=== PATIENT | female | born 1990 | race Caucasian/White ===

== ENCOUNTER 2020-04-20 15:35 | Observation (INO) | payer OTHER ==
[~2020-04-20] VITALS: Ht 167.6 cm; Wt 81.0 kg
[2020-04-20] MEDS ORDERED: TERBUTALINE 1 MG/ML, 1ML SQ ONE (16:00)
[2020-04-20] MEDS ORDERED: LACTATED RINGERS 1,000 ML IV SCH (16:00)
[2020-04-20] MEDS ORDERED: PLEASE ENTER HEIGHT AND WEIGHT MC SCH (16:00)
[2020-04-20 16:09] VITALS: BP 114/74
[2020-04-20] MEDS ORDERED: TERBUTALINE 1 MG/ML, 1ML ONE (16:50)
== END 2020-04-20 18:32 | disposition home or self-care (01) ==
LOC: LDOP 15:35 → LDIP 15:41
PROVIDERS: ADMIT Obstetrics & Gynecology Maternal & Fetal Medicine; ATTEND Obstetrics & Gynecology Maternal & Fetal Medicine
DX: O32.1XX0 Maternal care for breech presentation, not applicable or unspecified (principal); Z3A.37 37 weeks gestation of pregnancy
CPT/HCPCS: 59025; 59412; G0378

== ENCOUNTER → 2020-05-02 | Outpatient (CLI) | payer OTHER | END | disposition home or self-care (01) | LOC: STAR 13:49 | PROVIDERS: ATTEND Obstetrics & Gynecology | DX: Z01.812 Encounter for preprocedural laboratory examination (principal); Z20.828 Contact with and (suspected) exposure to other viral communicable diseases | CPT/HCPCS: 36415; 87635 ==

== ENCOUNTER 2020-05-07 07:44 | Inpatient (IN) | payer OTHER ==
[~2020-05-07] VITALS: Ht 167.6 cm; Wt 82.7 kg
[2020-05-07] MEDS ORDERED: NEWBORN KIT ONE (07:48)
[2020-05-07] MEDS ORDERED: OXYTOCIN 30U/ 0.9% NaCL 500ML 500 ML ONE (07:48)
[2020-05-07] MEDS ORDERED: METOCLOPRAMIDE 5 MG/ML, 2ML ONE (07:48)
[2020-05-07 08:00] VITALS: BP 116/58
[2020-05-07] MEDS ORDERED: LACTATED RINGERS 1,000 ML IVBOLUS ONE (08:00)
[2020-05-07] MEDS ORDERED: PLEASE ENTER HEIGHT AND WEIGHT MC SCH (08:00)
[2020-05-07] MEDS ORDERED: METOCLOPRAMIDE 5 MG/ML, 2ML IV ONE (08:00)
[2020-05-07] MEDS ORDERED: SODIUM CITRATE/CITRIC ACID 30 ML UDC PO ONE (08:00)
[2020-05-07 08:19] LABS: BASOPHILS % (AUTO) 1 % (0-1); EOSINOPHILS % (AUTO) 1 % (1-7); LYMPHOCYTES % (AUTO) 12 % (22-44); MEAN CORPUSCULAR HEMOGLOBIN 29.9 pg (27.0-34.8); MEAN CORPUSCULAR HGB CONC 33.6 g/dL (32.4-35.8); MEAN PLATELET VOLUME 9.6 fL (7.4-10.4); MONOCYTES % (AUTO) 6 % (2-9); NEUTROPHILS % (AUTO) 81 % (42-75); PLATELET COUNT 204 x10^3/uL (130-400); RED CELL DISTRIBUTION WIDTH 13.8 % (9.6-15.2)
[2020-05-07 08:24] LABS: MD SCAN
[2020-05-07] MEDS ORDERED: HYDROmorphone 2 MG/ML, 1ML ONE (09:07)
[2020-05-07] MEDS ORDERED: FENTANYL PF 100 MCG/2ML ONE (09:07)
[2020-05-07] MEDS ORDERED: ONDANSETRON 2MG/ML, 2ML ONE (09:07)
[2020-05-07] MEDS ORDERED: CEFAZOLIN 1,000 MG ONE (09:07)
[2020-05-07] MEDS ORDERED: OXYTOCIN 10 UNITS/ML, 1ML ONE (09:07)
[2020-05-07] MEDS ORDERED: KETOROLAC 30 MG/1 ML ONE (09:08)
[2020-05-07] MEDS ORDERED: MISOPROSTOL 200 MCG TABLET PR PRN (09:30)
[2020-05-07] MEDS ORDERED: DIPH,PERTUSS(ACELL),TET VAC/PF NC IM-VACC PRN (09:30)
[2020-05-07] MEDS ORDERED: METHYLERGONOVINE 0.2 MG/ML IM PRN (09:30)
[2020-05-07] MEDS ORDERED: IBUPROFEN 600 MG TABLET PO PRN (09:30)
[2020-05-07] MEDS: LACTATED RINGERS 1,000 ML IV SCH ×4 (09:30→19:30)
[2020-05-07] MEDS ORDERED: OXYcodone IR 5MG TABLET PO PRN (09:30)
[2020-05-07] MEDS ORDERED: morphine SULFATE 10 MG/ML, 1ML IVPush PRN (09:30)
[2020-05-07] MEDS ORDERED: CARBOPROST TROMETHAMINE 250 MCG/ML, 1ML IM PRN (09:30)
[2020-05-07] MEDS ORDERED: ONDANSETRON 2MG/ML, 2ML IV PRN (09:30)
[2020-05-07] MEDS ORDERED: ACETAMINOPHEN 325 MG TABLET PO PRN (09:30)
[2020-05-07] MEDS: OXYTOCIN 30U/ 0.9% NaCL 500ML 500 ML IV SCH ×2 (10:44→19:30)
[2020-05-07] MEDS ORDERED: OXYcodone/APAP 5/325MG TABLET ONE (11:59)
[2020-05-07] MEDS: OXYcodone/APAP 5/325MG TABLET PO PRN ×3 (12:02→23:22)
[2020-05-07 12:45] VITALS: BP 113/71
[2020-05-07] MEDS: SIMETHICONE 80 MG CHEW TAB PO PRN ×2 (16:08→23:07)
[2020-05-07 16:12] VITALS: BP 109/65
[2020-05-07] MEDS: KETOROLAC 30 MG/1 ML IV SCH ×2 (16:54→23:08)
[2020-05-07 17:53] LABS: BASOPHILS % (AUTO) 0 % (0-1); EOSINOPHILS % (AUTO) 1 % (1-7); LYMPHOCYTES % (AUTO) 14 % (22-44); MEAN CORPUSCULAR HEMOGLOBIN 29.6 pg (27.0-34.8); MEAN CORPUSCULAR HGB CONC 33.8 g/dL (32.4-35.8); MEAN PLATELET VOLUME 9.3 fL (7.4-10.4); MONOCYTES % (AUTO) 5 % (2-9); NEUTROPHILS % (AUTO) 80 % (42-75); PLATELET COUNT 195 x10^3/uL (130-400); RED BLOOD COUNT 3.65 x10^6/uL (3.82-5.3); RED CELL DISTRIBUTION WIDTH 13.5 % (9.6-15.2)
[2020-05-07 18:10] LABS: MD SCAN
[2020-05-07 19:45] VITALS: BP 111/66
[2020-05-07] MEDS: DOCUSATE 100 MG CAPSULE PO PRN (23:07)
[2020-05-07 23:24] VITALS: BP 115/71
[2020-05-08] MEDS: LACTATED RINGERS 1,000 ML IV SCH ×5 (01:30→17:50)
[2020-05-08 04:25] VITALS: BP 112/78
[2020-05-08] MEDS: SIMETHICONE 80 MG CHEW TAB PO PRN ×4 (05:15→23:02)
[2020-05-08] MEDS: KETOROLAC 30 MG/1 ML IV SCH ×4 (05:15→23:02)
[2020-05-08] MEDS: OXYTOCIN 30U/ 0.9% NaCL 500ML 500 ML IV SCH ×2 (05:30→15:30)
[2020-05-08] MEDS: DOCUSATE 100 MG CAPSULE PO PRN ×2 (08:54→23:01)
[2020-05-08] MEDS: PRENATAL VIT/IRON/FA 1 EACH TABLET PO SCH (08:54)
[2020-05-08] MEDS: OXYcodone/APAP 5/325MG TABLET PO PRN ×3 (08:54→23:02)
[2020-05-08 09:00] VITALS: BP 113/63
[2020-05-08 19:50] VITALS: BP 126/84
[2020-05-09] MEDS: LACTATED RINGERS 1,000 ML IV SCH ×4 (01:30→11:30)
[2020-05-09] MEDS: OXYTOCIN 30U/ 0.9% NaCL 500ML 500 ML IV SCH ×2 (01:30→11:30)
[2020-05-09] MEDS: KETOROLAC 30 MG/1 ML IV SCH ×2 (04:53→11:00)
[2020-05-09] MEDS: SIMETHICONE 80 MG CHEW TAB PO PRN ×2 (04:53→11:21)
[2020-05-09] MEDS: ACETAMINOPHEN 325 MG TABLET PO PRN ×2 (04:56→09:18)
[2020-05-09 07:40] VITALS: BP 112/77
[2020-05-09] MEDS: DOCUSATE 100 MG CAPSULE PO PRN (09:17)
[2020-05-09] MEDS: PRENATAL VIT/IRON/FA 1 EACH TABLET PO SCH (09:17)
== END 2020-05-09 12:20 | disposition home or self-care (01) | DRG 788 ==
LOC: LDIP 07:44 → 2NW 12:41
PROVIDERS: ADMIT Obstetrics & Gynecology Maternal & Fetal Medicine; ATTEND Obstetrics & Gynecology Maternal & Fetal Medicine
PROC: 10D00Z1 Extraction of Products of Conception, Low, Open Approach (ICD-10-PCS; principal; 2020-05-07)
DX: O32.1XX0 Maternal care for breech presentation, not applicable or unspecified (principal); Z37.0 Single live birth; Z3A.39 39 weeks gestation of pregnancy
CPT/HCPCS: 36415; 85025; 86592; 86850; 86900; G0378; J0690; J1170; J1885; J2405; J3010; J2590; J2765; J7120